=== PATIENT | male | born 1995 | race Caucasian/White ===

== ENCOUNTER 2017-03-07 10:57 | Emergency (ER) | payer BC ==
[~2017-03-07] VITALS: Ht 185.4 cm; Wt 76.9 kg
[~2017-03-07 10:57] MED LIST: INDOCIN25 MG PO; NORCO 7.5/321 TABLET PO
[2017-03-07] MEDS ORDERED: ULTRAM50 MG PO (12:24)
[2017-03-07] MEDS ORDERED: MOTRIN600 MG PO (12:24)
[2017-03-07 13:18] VITALS: BP 126/79
== END 2017-03-07 13:19 | disposition home or self-care (01) ==
LOC: EME 10:57
PROC: 2W3QX1Z Immobilization of Right Lower Leg using Splint (ICD-10-PCS; principal; 2017-03-07)
DX: S93.601A Unspecified sprain of right foot, initial encounter (principal); W22.09XA Striking against other stationary object, initial encounter
CPT/HCPCS: 73630; 99281; 99284